=== PATIENT | male | born 1965 | race African-American/Black ===

== ENCOUNTER 2023-06-13 13:45 | Emergency (ER) | payer MEDICARE, MEDICAID ==
[~2023-06-13] VITALS: Ht 177.8 cm; Wt 77.3 kg
[~2023-06-13 13:45] MED LIST: ASPI-1450 PO; ATOR20TA PO; DORZ10DR6 OU; GUAIF600 PO; METO25XL PO; NITR0.4T52 SL; OMEP20 PO; TIMO5DRO21 OU; XALA2.5OS OU
[2023-06-13 13:49] VITALS: TEMP 98.3
[2023-06-13] MEDS: ACETAMINOPHEN 500 MG TABLET PO ONE (16:02)
[2023-06-13] MEDS: DiphenhydrAMINE HCL 25 MG CAPSULE PO ONE (16:02)
[2023-06-13 16:05] VITALS: BP 132/89; PULSE 84; RESP 16
== END 2023-06-13 16:22 | disposition home or self-care (01) ==
LOC: EMS 14:02
DX: T63.441A Toxic effect of venom of bees, accidental (unintentional), initial encounter (principal); Y92.89 Other specified places as the place of occurrence of the external cause
CPT/HCPCS: 99283